=== PATIENT | female | born 1995 | race Caucasian/White ===

== ENCOUNTER 2016-07-14 14:43 | Emergency (ER) | payer MEDICAID ==
[2016-07-14 14:56] VITALS: BP 95/56
--- NOTE | 2016-07-14 15:19 | EDM.PDOC ---
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 (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 Below) Other OB/BYN History: sedation for placenta removal after childbirth Musculoskeletal History: Reports: None Neurological History: Reports: None Psychiatric History: Reports: None Endocrine/Metabolic History: Reports: None Hematologic History: Reports: None Dermatologic History: Reports: None - Infectious Disease History Infectious Disease History: Reports: Chicken Pox Other Infectious Disease History: childhood Social & Family History - Family History Family Medical History: Noncontributory Cardiac: Reports: Hypertension, [place] Neurological: Reports: CVA Endocrine/Metabolic: Reports: Diabetes, Type I Oncologic: Reports: Breast, Colon, Lung - Tobacco Use Smoking Status *Q: Current Every Day Smoker Years of Tobacco use: 7 Packs/Tins Daily: 0.5 Second Hand Smoke Exposure: No - Caffeine Use Caffeine Use: Reports: Coffee, Soda, Tea - Recreational Drug Use Recreational Drug Use: No Review of Systems - Review of Systems Review Of Systems: See Below (History of present illness) ED EXAM, GENERAL - Physical Exam Exam: See Below (History of present illness) Course - Vital Signs Last Recorded V/S: Last Vital Signs Temp 36.8 C 07/14/16 14:54 Pulse 108 H 07/14/16 14:54 Resp 18 07/14/16 14:54 BP 95/56 L 07/14/16 14:54 Pulse Ox 96 07/14/16 14:54 - Orders/Labs/Meds Meds: Medications Discontinued Medications Generic Name Dose Route Start Last Admin Trade Name Freq PRN Reason Stop Dose Admin Ibuprofen 400 mg 07/14/16 15:40 07/14/16 15:49 Motrin PO 07/14/16 15:41 400 mg ONETIME ONE Administration Departure - Departure Time of Disposition: 15:40 Disposition: Home, Self-Care 01 Condition: Good Clinical Impression: Contusion of right foot - Discharge Information Instructions: Foot Contusion, [id number] Referrals: PCP,None [Primary Care Provider] - Forms: ED Department Discharge Additional Instructions: Your x-rays are normal today and showed no evidence of fracture. You have suffered contusions, which means soft tissue injury and bruising. It is likely that the area may turn black and blue. Rest apply ice and elevate above your heart when ever possible for the next day or so. Take Motrin every 6 hours and Tylenol every 4 hours as needed for pain and followup with your Dr. for reevaluation and referral to orthopedics as needed. ED HPI Trauma - General Chief Complaint: Lower Extremity Injury/Pain Stated Complaint: FOOT Time Seen by Provider: 07/14/16 15:00 Source: Reports: Patient History Limitations: Reports: No Limitations - History of Present Illness INITIAL COMMENTS - FREE TEXT/NARRATIVE: HISTORY AND PHYSICAL: History of present illness: [20-year-old female complaining of right foot pain after being stepped on by horse. 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 Pain with palpation range of motion and weightbearing since. No other complaints no prior injury of this foot.] Review of systems: As per history of present illness and below otherwise all systems reviewed and negative. Past medical history: As per history of present illness and as reviewed below otherwise noncontributory. Surgical history: As per history of present illness and as reviewed below otherwise noncontributory. Social history: No reported history of drug or alcohol abuse. Family history: As per history of present illness and as reviewed below otherwise noncontributory. Physical exam: Right foot with soft tissue tenderness on the dorsum. No bony tenderness or deformity. No visible ecchymosis. Neurovascularly intact distally. Nontender ankle normal painless range of motion and soft nontender compartments calf and leg. HEENT: Normocephalic, atraumatic, pupils normal and symmetrical, supple neck, no meningismus, normal color Lungs: Normal and symmetrical chest wall excursion bilateral with no tachypnea or increased work of breathing, grossly normal chest exam Heart: No tachycardia in triage Abdomen: Normal-appearing, nondistended, no visible mass or asymmetry Pelvis: Normal-appearing Genitourinary: Deferred Rectal exam: Deferred Extremities: Atraumatic, normal use and range of motion, no visible evidence of gross neurovascular compromise Neuro: Awake, alert, oriented. Normal and appropriate mental status. Cranial nerves grossly unremarkable. Motor function normal. Nonfocal neurologic exam. Diagnostics: X-rays negative interpreted by me report reviewed] Therapeutics: [] Impression: [Contusion] Plan: [Signs and symptoms consistent contusion confirmed by x-ray. No clinical history suggests sprain. No further workup or treatment indicated. Patient aware to rest ice and elevate take NSAIDs and follow-up PCP and [place] as needed. Definitive disposition and diagnosis as appropriate pending reevaluation and review of above. Allergies/ADRs: Allergies No Known Allergies Allergy (Verified 07/14/16 14:53) Home Medications: Ambulatory Orders Cariprazine Hydrochloride [Vraylar] 1.5 mg PO DAILY 07/14/16 [Confirmed 07/14/16 ] Sleeping Pill 07/14/16 Departure - Departure Time of Disposition: 15:39 Disposition: Home, Self-Care 01 Condition: Good Clinical Impression: Contusion of right foot Instructions: Foot Contusion, [id number] Referrals: PCP,None [Primary Care Provider] - Forms: ED Department Discharge Additional Instructions: Your x-rays are normal today and showed no evidence of fracture. You have suffered contusions, which means soft tissue injury and bruising. It is likely that the area may turn black and blue. Rest apply ice and elevate above your heart when ever possible for the next day or so. Take Motrin every 6 hours and Tylenol every 4 hours as needed for pain and followup with your Dr. for reevaluation and referral to orthopedics as needed.
--- NOTE | 2016-07-14 15:34 | CR ---
EXAMINATION: Right foot HISTORY: Pain COMPARISON: None TECHNIQUE: 3 views FINDINGS: There is no acute osseous abnormality, dislocation, or fracture identified. Bone mineraliz ation and joint spaces appear normal. There is mild hallux valgus. IMPRESSION: No acute osseous abnormality.
[2016-07-14] MEDS ORDERED: Ibuprofen 400 MG Tab PO ONE (15:40)
== END 2016-07-14 15:51 | disposition home or self-care (01) ==
LOC: MW.ED 14:43
DX: S90.31XA Contusion of right foot, initial encounter (principal); F17.210 Nicotine dependence, cigarettes, uncomplicated; Z87.440 Personal history of urinary (tract) infections; W55.19XA Other contact with horse, initial encounter
CPT/HCPCS: 73630; 99283; A9270; 99282

== ENCOUNTER 2017-07-08 21:02 | Emergency (ER) | payer MEDICAID ==
--- NOTE | 2017-07-08 21:17 | EDM.PDOC ---
ED HPI GENERAL MEDICAL PROBLEM - General Stated Complaint: SORE THROAT/LIGHTHEADED/DIZZY Time Seen by Provider: 07/08/17 21:09 - History of Present Illness INITIAL COMMENTS - FREE TEXT/NARRATIVE: HISTORY AND PHYSICAL: History of present illness: Patient 21-year-old female presents with concern of general body aches cough shortness of breath was seen by physician recently put on antibiotics and an inhaler no reported fever chills vomiting diarrhea vaginal discharge or irregular bleeding or other complaints Review of systems: As per history of present illness and below otherwise all systems reviewed and negative. Past medical history: As per history of present illness and as reviewed below otherwise noncontributory. Surgical history: As per history of present illness and as reviewed below otherwise noncontributory. Social history: No reported history of drug or alcohol abuse. Family history: As per history of present illness and as reviewed below otherwise noncontributory. Physical exam: HEENT: Atraumatic, normocephalic, pupils reactive, negative for conjunctival pallor or scleral icterus, mucous membranes moist, throat clear, neck supple, nontender, trachea midline. Lungs: Clear to auscultation, breath sounds equal bilaterally, chest nontender. Heart: S1S2, regular, negative for clicks, rubs, or JVD. Abdomen: Soft, nondistended, nontender. Negative for masses or hepatosplenomegaly. Negative for costovertebral tenderness. Pelvis: Stable nontender. Genitourinary: Deferred. Rectal: Deferred. Extremities: Atraumatic, negative for cords or calf pain. Neurovascular unremarkable. Neuro: Awake, alert, oriented. Cranial nerves II through XII unremarkable. Cerebellum unremarkable. Motor and sensory unremarkable throughout. Exam nonfocal. Diagnostics: CBC CMP influenza screen UA hCG UDS chest x-ray EKG Therapeutics: None Impression: #1 pneumonitis #2 polymyalgia Definitive disposition and diagnosis as appropriate pending reevaluation and review of above. 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) Other OB/BYN History: sedation for placenta removal after childbirth Musculoskeletal History: Reports: None Neurological History: Reports: None Psychiatric History: Reports: None Endocrine/Metabolic History: Reports: None Hematologic History: Reports: None Dermatologic History: Reports: None - Infectious Disease History Infectious Disease History: Reports: Chicken Pox Other Infectious Disease History: childhood Social & Family History - Family History Family Medical History: Noncontributory Cardiac: Reports: Hypertension, [place] Neurological: Reports: CVA Endocrine/Metabolic: Reports: Diabetes, Type I Oncologic: Reports: Breast, Colon, Lung - Tobacco Use Smoking Status *Q: Current Every Day Smoker Years of Tobacco use: 7 Packs/Tins Daily: 0.5 Second Hand Smoke Exposure: No - Caffeine Use Caffeine Use: Reports: Coffee, Soda, Tea - Recreational Drug Use Recreational Drug Use: No ED ROS GENERAL - Review of Systems Review Of Systems: ROS reveals no pertinent complaints other than HPI. ED EXAM, GENERAL - Physical Exam Exam: See Below (The dictation) Course - Vital Signs Last Recorded V/S: Last Vital Signs Temp 36.6 C 07/08/17 23:02 Pulse 74 07/08/17 23:02 Resp 18 07/08/17 23:02 BP 100/63 07/08/17 23:02 Pulse Ox 98 07/08/17 23:02 - Orders/Labs/Meds Orders: Active Orders 24 hr Category Date Time Status EKG Documentation Completion [RC] STAT Care 07/08/17 21:19 Active DRUG SCREEN, URINE [URCHEM] Stat Lab 07/08/17 21:45 Ordered INFLUENZA A+B AG SCREEN [RM] Stat Lab 07/08/17 21:45 Ordered UA W/MICROSCOPIC [URIN] Stat Lab 07/08/17 21:45 Ordered Labs: Laboratory Tests 07/08/17 07/08/17 07/08/17 Range/Units 21:33 21:33 21:33 WBC 13.46 H (4.0-11.0) K/uL RBC 3.92 L (4.30-5.90) M/uL Hgb 12.7 (12.0-16.0) g/dL Hct 35.6 L (36.0-46.0) % MCV 90.8 (80.0-98.0) fL MCH 32.4 H (27.0-32.0) pg MCHC 35.7 (31.0-37.0) g/dL RDW Std Deviation 41.2 (28.0-62.0) fl RDW Coeff of Kimo 12 (11.0-15.0) % Plt Count 172 (150-400) K/uL MPV 11.50 (7.40-12.00) fL Neut % (Auto) 77.6 (48.0-80.0) % Lymph % (Auto) 9.9 L (16.0-40.0) % Gilliam % (Auto) 12.1 (0.0-15.0) % Eos % (Auto) 0.2 (0.0-7.0) % Baso % (Auto) 0.2 (0.0-1.5) % Neut # (Auto) 10.4 H (1.4-5.7) K/uL Lymph # (Auto) 1.3 (0.6-2.4) K/uL Gilliam # (Auto) 1.6 H (0.0-0.8) K/uL Eos # (Auto) 0.0 (0.0-0.7) K/uL Baso # (Auto) 0.0 (0.0-0.1) K/uL Nucleated RBC % 0.0 /100WBC Nucleated RBCs # 0 K/uL Sodium 138 (136-145) mmol/L Potassium 3.2 L (3.5-5.1) mmol/L Chloride 106 (98-107) mmol/L Carbon Dioxide 24.1 (21.0-32.0) mmol/L BUN 9 (7.0-18.0) mg/dL Creatinine 0.8 (0.6-1.0) mg/dL Est Cr Clr Drug Dosing 95.88 mL/min Estimated GFR (MDRD) > 60.0 ml/min Glucose 104 (74-106) mg/dL Calcium 9.0 (8.5-10.1) mg/dL Total Bilirubin 0.3 (0.2-1.0) mg/dL AST 10 L (15-37) IU/L ALT 12 L (14-63) IU/L Alkaline Phosphatase 52 (46-116) U/L Total Protein 7.1 (6.4-8.2) g/dL Albumin 3.6 (3.4-5.0) g/dL Globulin 3.5 (2.0-3.5) g/dL Albumin/Globulin Ratio 1.0 L (1.3-2.8) HCG, Qual NEGATIVE (NEG) Urine Color Urine Appearance Urine pH (5.0-8.0) Ur Specific [place] (1.001-1.035) Urine Protein (NEGATIVE) mg/dL Urine Glucose (UA) (NEGATIVE) mg/dL Urine Ketones (NEGATIVE) mg/dL Urine Occult Blood (NEGATIVE) Urine Nitrite (NEGATIVE) Urine Bilirubin (NEGATIVE) Urine Urobilinogen (<2.0) EU/dL Ur Leukocyte Esterase (NEGATIVE) Urine RBC (0-2/HPF) Urine WBC (0-5/HPF) Ur Epithelial Cells (NONE-FEW) Urine Bacteria (NEGATIVE) Urine Opiates Screen (NEGATIVE) Ur Oxycodone Screen (NEGATIVE) Urine Methadone Screen (NEGATIVE) Ur Barbiturates Screen (NEGATIVE) Ur Phencyclidine Scrn (NEGATIVE) Ur Amphetamine Screen (NEGATIVE) U Methamphetamines Scrn (NEGATIVE) U Benzodiazepines Scrn (NEGATIVE) U Cocaine Metab Screen (NEGATIVE) U Marijuana (THC) Screen (NEGATIVE) 07/08/17 07/08/17 Range/Units 21:45 21:45 WBC (4.0-11.0) K/uL RBC (4.30-5.90) M/uL Hgb (12.0-16.0) g/dL Hct (36.0-46.0) % MCV (80.0-98.0) fL MCH (27.0-32.0) pg MCHC (31.0-37.0) g/dL RDW Std Deviation (28.0-62.0) fl RDW Coeff of Kimo (11.0-15.0) % Plt Count (150-400) K/uL MPV (7.40-12.00) fL Neut % (Auto) (48.0-80.0) % Lymph % (Auto) (16.0-40.0) % Gilliam % (Auto) (0.0-15.0) % Eos % (Auto) (0.0-7.0) % Baso % (Auto) (0.0-1.5) % Neut # (Auto) (1.4-5.7) K/uL Lymph # (Auto) (0.6-2.4) K/uL Gilliam # (Auto) (0.0-0.8) K/uL Eos # (Auto) (0.0-0.7) K/uL Baso # (Auto) (0.0-0.1) K/uL Nucleated RBC % /100WBC Nucleated RBCs # K/uL Sodium (136-145) mmol/L Potassium (3.5-5.1) mmol/L Chloride (98-107) mmol/L Carbon Dioxide (21.0-32.0) mmol/L BUN (7.0-18.0) mg/dL Creatinine (0.6-1.0) mg/dL Est Cr Clr Drug Dosing mL/min Estimated GFR (MDRD) ml/min Glucose (74-106) mg/dL Calcium (8.5-10.1) mg/dL Total Bilirubin (0.2-1.0) mg/dL AST (15-37) IU/L ALT (14-63) IU/L Alkaline Phosphatase (46-116) U/L Total Protein (6.4-8.2) g/dL Albumin (3.4-5.0) g/dL Globulin (2.0-3.5) g/dL Albumin/Globulin Ratio (1.3-2.8) HCG, Qual (NEG) Urine Color YELLOW Urine Appearance CLEAR Urine pH 7.0 (5.0-8.0) Ur Specific [place] <= 1.005 (1.001-1.035) Urine Protein NEGATIVE (NEGATIVE) mg/dL Urine Glucose (UA) NEGATIVE (NEGATIVE) mg/dL Urine Ketones NEGATIVE (NEGATIVE) mg/dL Urine Occult Blood NEGATIVE (NEGATIVE) Urine Nitrite NEGATIVE (NEGATIVE) Urine Bilirubin NEGATIVE (NEGATIVE) Urine Urobilinogen 0.2 (<2.0) EU/dL Ur Leukocyte Esterase NEGATIVE (NEGATIVE) Urine RBC 0-2 (0-2/HPF) Urine WBC 0-1 (0-5/HPF) Ur Epithelial Cells OCCASIONAL (NONE-FEW) Urine Bacteria RARE (NEGATIVE) Urine Opiates Screen NEGATIVE (NEGATIVE) Ur Oxycodone Screen NEGATIVE (NEGATIVE) Urine Methadone Screen NEGATIVE (NEGATIVE) Ur Barbiturates Screen NEGATIVE (NEGATIVE) Ur Phencyclidine Scrn NEGATIVE (NEGATIVE) Ur Amphetamine Screen NEGATIVE (NEGATIVE) U Methamphetamines Scrn NEGATIVE (NEGATIVE) U Benzodiazepines Scrn NEGATIVE (NEGATIVE) U Cocaine Metab Screen NEGATIVE (NEGATIVE) U Marijuana (THC) Screen NEGATIVE (NEGATIVE) Departure - Departure Time of Disposition: 20:04 Disposition: Home, Self-Care 01 Condition: Good Clinical Impression: Bronchitis - Discharge Information Instructions: Acute Bronchitis, Adult, [id number] Referrals: PCP,None [Primary Care Provider] - Forms: ED Department Discharge - My Orders Last 24 Hours: My Active Orders 07/08/17 21:19 EKG Documentation Completion [RC] STAT 07/08/17 21:45 DRUG SCREEN, URINE [URCHEM] Stat INFLUENZA A+B AG SCREEN [RM] Stat UA W/MICROSCOPIC [URIN] Stat - Assessment/Plan Last 24 Hours: My Active Orders 07/08/17 21:19 EKG Documentation Completion [RC] STAT 07/08/17 21:45 DRUG SCREEN, URINE [URCHEM] Stat INFLUENZA A+B AG SCREEN [RM] Stat UA W/MICROSCOPIC [URIN] Stat
[2017-07-08 22:08] LABS: CHLORIDE,CL 106 mmol/L (98-107); SODIUM,NA 138 mmol/L (136-145)
[2017-07-08 23:03] VITALS: BP 100/63
--- NOTE | 2017-07-09 13:40 | CR ---
EXAM DATE: 07/08/17 PATIENT'S AGE: 21 Patient: CATRACHITA REID Facility: [place], [place] Site . Site : [id number] Study: XRay Chest [id number]/25/2018 10:11:36 PM Ordering Physician: Saba Nails Final Report: INDICATION: DIFFICULTY BREATHING FOR 1 WEEK TECHNIQUE: Chest 1 view COMPARISON: None FINDINGS: Cardiovascular and mediastinum: Heart size and vasculature are normal in caliber and appearance. Mediastinum is within normal limits. Lungs and pleural space: No focal consolidation. No sign of pleural effusion. No pneumothorax. Bones and soft tissues: No significant findings. IMPRESSION: No acute cardiopulmonary disease. Dictated by Jonathan Oliver MD @ 07/08/2017 10:18:50 PM Dictated by: Jonathan Oliver MD @ 07/08/2017 22:18:55 (Electronic Signature) Report Signed by Proxy. [facility] HOSPITALJuan Antonio
== END 2017-07-08 23:10 | disposition home or self-care (01) ==
LOC: MW.ED 21:02
DX: J18.9 Pneumonia, unspecified organism (principal); J40 Bronchitis, not specified as acute or chronic; M35.3 Polymyalgia rheumatica; F17.210 Nicotine dependence, cigarettes, uncomplicated; Z79.899 Other long term (current) drug therapy
CPT/HCPCS: 36415; 71045; 71045-26; 80053; 80305; 81001; 84703; 85025; 87804; 93005; 99285-25

== ENCOUNTER 2018-07-02 10:42 | Inpatient (IN) | payer MEDICAID ==
[2018-07-02] MEDS ORDERED: Water For Irrigation,Sterile 1,000 ML Container IRR PRN (11:20)
[2018-07-02] MEDS ORDERED: Sodium Chloride 0.9% 10 ML SDV IV PRN (11:20)
[2018-07-02] MEDS ORDERED: Misoprostol 200 MCG Tab PO PRN (11:20)
[2018-07-02] MEDS ORDERED: Tranexamic Acid 1,000 MG in Sodium Chloride 0.9% 100 ML IV PRN (11:20)
[2018-07-02] MEDS ORDERED: Sodium Chloride 0.9% 2.5 ML Syringe FLUSH PRN (11:20)
[2018-07-02] MEDS ORDERED: Methylergonovine 0.2 MG/1 ML Amp IM PRN (11:20)
[2018-07-02] MEDS ORDERED: Lidocaine 1% 50 ML MDV INJECT PRN (11:20)
[2018-07-02] MEDS ORDERED: Ampicillin 2 GM in Sodium Chloride 0.9% 100 ML IV ONE (11:20)
[2018-07-02] MEDS ORDERED: Carboprost Tromethamine 250 MCG/1 ML Amp IM PRN (11:20)
[2018-07-02] MEDS ORDERED: Nalbuphine 10 MG/1 ML Vial IVPUSH PRN (11:20)
[2018-07-02] MEDS ORDERED: Sodium Chloride 0.9% 10 ML Syringe FLUSH PRN (11:20)
[2018-07-02] MEDS ORDERED: Terbutaline 1 MG/ML SDV SUBCUT PRN (11:24)
[2018-07-02] MEDS ORDERED: Oxytocin/0.9 % Sodium Chloride 30 UNIT/500 ML BAG IV SCH (11:30)
[2018-07-02] MEDS ORDERED: Lactated Ringers 1,000 ML IV SCH (11:30)
[2018-07-02] MEDS ORDERED: Citric Acid/Sodium Citrate Solution 30 ML Cup PO ONE (13:26)
[2018-07-02] MEDS ORDERED: Ampicillin 1 GM AdvVial IV ONE (15:12)
[2018-07-02] MEDS ORDERED: Sodium Chloride 0.9% 50 ML ONE (15:13)
[2018-07-02] MEDS ORDERED: Ampicillin 1 GM in Sodium Chloride 0.9% 50 ML IV SCH (15:30)
[2018-07-02] MEDS: Butorphanol 1 MG/ML SDV IVPUSH PRN ×2 (16:17→17:19)
[2018-07-02] MEDS ORDERED: oxyCODONE 5 MG Tab PO PRN (18:44)
[2018-07-02] MEDS ORDERED: Ibuprofen 800 MG Tab PO PRN (18:44)
[2018-07-02] MEDS ORDERED: Bisacodyl 10 MG Supp RECTAL PRN (18:44)
[2018-07-02] MEDS ORDERED: Ondansetron 4 MG/2 ML SDV IVPUSH PRN (18:44)
[2018-07-02] MEDS ORDERED: Witch Hazel Medicated Pads 40/Jar TOP PRN (18:44)
[2018-07-02] MEDS ORDERED: Benzocaine/Menthol 20%-0.5% Spray 78 GM Cannister TOP PRN (18:44)
[2018-07-02] MEDS ORDERED: Lanolin 100% Cream 7 GM Tube TOP PRN (18:44)
[2018-07-02] MEDS ORDERED: Acetaminophen 500 MG Tab PO PRN ×2 (18:44)
[2018-07-02] MEDS ORDERED: Docusate Sodium 100 MG Cap PO PRN (18:44)
[2018-07-02] MEDS ORDERED: Ibuprofen 400 MG Tab PO PRN (18:44)
--- NOTE | 2018-07-02 18:50 | PCM.OPNOTE ---
- General Post-Op/Procedure Note Date of Surgery/Procedure: 07/02/18 Operative Procedure(s): /IP Findings: Viable female APGARs 8, 9 weight 8 lb 8 oz. Spontaneous delivery intact placenta with 3V cord Pre Op Diagnosis: 39/3 week IUP. GBBS +. Elective IOL Post-Op Diagnosis: Same Primary Surgeon: Radha Wong EBL in mLs: 300 Complications: none known Condition: Good Free Text/Narrative:: Dictation [id number]
--- NOTE | 2018-07-03 01:39 | OR ---
SURGEON: Radha Wong M.D. DATE OF PROCEDURE: 07/02/2018 PREOPERATIVE DIAGNOSES: 1. A 39 and 3 weeks intrauterine . 2. Group B beta strep positive. 3. Elective induction of labor. POSTOPERATIVE DIAGNOSES: 1. A 39 and 3 weeks intrauterine . 2. Group B beta strep positive. 3. Elective induction of labor. PROCEDURE: Spontaneous vaginal delivery intact perineum. ANESTHESIA: None. ESTIMATED BLOOD LOSS: 300 mL. FINDINGS: A viable male. scores 8 at 1 minute and 9 at 5 minutes. Weight of 8 pounds, 8 ounces. Spontaneous delivery, intact placenta, 3-vessel cord. DISPOSITION: Infant to nursery, mom in LDRP, stable. PROCEDURE IN DETAIL: Evelyn is a 22-year-old, G5, P2-0-0-2 at 39 and 3 weeks gestational age who was admitted on the late morning of 07/02/2017 for scheduled induction of labor. She underwent her ampicillin prophylaxis followed by amniotomy with Pitocin induction. Shortly after 4 p.m. was found to be 4 cm, within the hour progressed to 5 to 6 cm and within the next hour, was able to progress to 9 cm, feeling the urge to push, I was called for delivery. Upon my arrival, the patient was complete, 100% effaced, and +4 station. With the next contraction was able to push, deliver the 's head atraumatically, spontaneously, with delivery of the head, followed by compound presentation of left hand, with left shoulder, posterior shoulder, and remainder of body without difficulty. The infant's oropharynx and nares were bulb suctioned. The was handed off to his mother with attending nursing staff at her side. After delay of over 90 seconds, the cord was clamped x2 and cut. Cord arterial, cord venous, and cord blood sampling were obtained. Light pressure was applied while the placenta was delivered spontaneously intact. Vigorous fundal uterine massage was then applied while 30 units of Pitocin was delivered in 500 mL of IV fluids. Upon inspection of cervix, vaginal sidewalls, and perineum, these were found to be intact. Uterus remained firm. Hemostasis remained evident. Sponge count was correct. The patient remained in LDRP, infant to nursery. [place] / S[place] /[id number]
--- NOTE | 2018-07-03 09:51 | PCM.PNPP ---
- General Info Date of Service: 07/03/18 Functional Status: Reports: Pain Controlled, Tolerating Diet, Ambulating, Urinating - Review of Systems General: Denies: Fever, Weakness, Fatigue Pulmonary: Denies: Shortness of Breath Cardiovascular: Denies: Chest Pain, Palpitations, Lightheadedness Gastrointestinal: Denies: Abdominal Pain, Nausea, Vomiting Genitourinary: Denies: Flank Pain Skin: Reports: No Symptoms Neurological: Reports: No Symptoms Psychiatric: Reports: No Symptoms - General Info Date of Service: 07/03/18 - Patient Data Vital Signs - Most Recent: Last Vital Signs Temp 36.3 C 07/03/18 07:10 Pulse 89 07/03/18 07:10 Resp 17 07/03/18 07:10 BP 97/62 07/03/18 07:10 Pulse Ox 96 07/03/18 07:10 Weight - Most Recent: 78.018 kg Lab Results - Last 24 Hours: Laboratory Results - last 24 hr 07/02/18 07/02/18 07/02/18 Range/Units 11:35 11:35 18:48 WBC 11.47 H (4.0-11.0) K/uL RBC 3.74 L (4.30-5.90) M/uL Hgb 13.0 (12.0-16.0) g/dL Hct 37.7 (36.0-46.0) % MCV 100.8 H (80.0-98.0) fL MCH 34.8 H (27.0-32.0) pg MCHC 34.5 (31.0-37.0) g/dL RDW Std Deviation 47.5 (28.0-62.0) fl RDW Coeff of Kimo 13 (11.0-15.0) % Plt Count 160 (150-400) K/uL MPV 11.50 (7.40-12.00) fL Nucleated RBC % 0.0 /100WBC Nucleated RBCs # 0 K/uL Cord ABG pH 7.374 (7.18-7.38) Cord ABG Base Excess -2 (-10--2) Cord VBG pH 7.405 (7.25-7.45) Cord VBG Base Excess -2 (-10--2) Blood Type AB POSITIVE Antibody Screen NEGATIVE 07/03/18 Range/Units 05:02 WBC (4.0-11.0) K/uL RBC (4.30-5.90) M/uL Hgb 13.0 (12.0-16.0) g/dL Hct 39.7 (36.0-46.0) % MCV (80.0-98.0) fL MCH (27.0-32.0) pg MCHC (31.0-37.0) g/dL RDW Std Deviation (28.0-62.0) fl RDW Coeff of Kimo (11.0-15.0) % Plt Count (150-400) K/uL MPV (7.40-12.00) fL Nucleated RBC % /100WBC Nucleated RBCs # K/uL Cord ABG pH (7.18-7.38) Cord ABG Base Excess (-10--2) Cord VBG pH (7.25-7.45) Cord VBG Base Excess (-10--2) Blood Type Antibody Screen Med Orders - Current: Current Medications Acetaminophen (Tylenol Extra Strength) 500 mg PO Q4H PRN PRN Reason: Pain Acetaminophen (Tylenol Extra Strength) 1,000 mg PO Q4H PRN PRN Reason: Pain Benzocaine/Menthol (Dermoplast Pain Relief 20%-0.5% [place]) 78 gm TOP ASDIRECTED PRN PRN Reason: Perineal Comfort Measure Bisacodyl (Dulcolax) 10 mg RECTAL ONETIME PRN PRN Reason: Constipation Carboprost Tromethamine (Hemabate Ds) 250 mcg IM ASDIRECTED PRN PRN Reason: Post Hemorrhage Docusate Sodium (Colace) 100 mg PO BID PRN PRN Reason: Constipation Emollient Ointment (Lansinoh Hpa) 0 gm TOP ASDIRECTED PRN PRN Reason: Sore Nipples Lactated Ringer's (Ringers, Lactated) 1,000 mls @ 150 mls/hr IV ASDIRECTED PARAMJIT Last Infusion: 07/03/18 00:30 Dose: Infused Tranexamic Acid 1,000 mg/ (Sodium Chloride) 110 mls @ 660 mls/hr IV ONETIME PRN PRN Reason: Bleeding Oxytocin/Sodium Chloride (Oxytocin 30 Unit/500 Ml-Ns) 30 unit in 500 mls @ 2 mls/hr IV TITRATE PARAMJIT; Protocol Last Titration: 07/02/18 18:40 Dose: Infused Ibuprofen (Motrin) 400 mg PO Q4H PRN PRN Reason: Pain Ibuprofen (Motrin) 800 mg PO Q6H PRN PRN Reason: Pain Methylergonovine Maleate (Methergine) 0.2 mg IM ASDIRECTED PRN PRN Reason: Post Hemorrhage Ondansetron HCl (Zofran) 4 mg IVPUSH Q6H PRN PRN Reason: Nausea/Vomiting Oxycodone HCl (Oxycodone) 5 mg PO Q2H PRN PRN Reason: Pain Sodium Chloride (Saline Flush) 10 ml FLUSH ASDIRECTED PRN PRN Reason: Keep Vein Open Sodium Chloride (Saline Flush) 2.5 ml FLUSH ASDIRECTED PRN PRN Reason: Keep Vein Open Sodium Chloride (Normal Saline) 10 ml IV ASDIRECTED PRN PRN Reason: IV Use Sterile Water (Sterile Water For Irrigation) 1,000 ml IRR ASDIRECTED PRN PRN Reason: delivery Witch Moriah (Tucks) 1 pad TOP ASDIRECTED PRN PRN Reason: comfort care Discontinued Medications Ampicillin Sodium (Ampicillin) Confirm Administered Dose 1 gm IV .STK-MED ONE Stop: 07/02/18 15:13 Butorphanol Tartrate (Stadol) 1 mg IVPUSH Q1H PRN PRN Reason: Pain Last Admin: 07/02/18 17:19 Dose: 1 mg Citric Acid/Sodium Citrate (Bicitra Solution) 30 ml PO ONETIME ONE Stop: 07/02/18 13:27 Last Admin: 07/02/18 14:24 Dose: 30 ml Ampicillin Sodium 2 gm/ Sodium (Chloride) 100 mls @ 200 mls/hr IV ONETIME ONE Stop: 07/02/18 11:49 Last Admin: 07/02/18 11:44 Dose: 200 mls/hr Sodium Chloride (Normal Saline) Confirm Administered Dose 50 mls @ as directed .ROUTE .STK-MED ONE Stop: 07/02/18 15:14 Ampicillin Sodium 1 gm/ Sodium (Chloride) 50 mls @ 100 mls/hr IV Q4H PARAMJIT Last Admin: 07/02/18 15:15 Dose: 100 mls/hr Lidocaine HCl (Xylocaine 1%) 50 ml INJECT ONETIME PRN PRN Reason: Laceration repair Misoprostol (Cytotec) 200 mcg PO ONETIME PRN PRN Reason: Post Hemorrhage Nalbuphine HCl (Nubain) 10 mg IVPUSH Q1H PRN PRN Reason: Pain (severe 7-10) Terbutaline Sulfate (Brethine) 0.25 mg SUBCUT ASDIRECTED PRN PRN Reason: Tacysystole - Infant Interaction Support Person: Significant Other - Recovery Exam Fundal Tone: Firm Fundal Level: 2 Fingerbreadths Below Umbilicus Fundal Placement: Midline Lochia Amount: Scant Lochia Color: Rubra/Red Perineum Description: Intact, Minimal Bruising/Swelling Episiotomy/Laceration: None Bladder Status: Nonpalpable Urinary Elimination: Voided - Exam General: Alert, Oriented Neck: Supple Lungs: Normal Respiratory Effort Cardiovascular: Regular Rate, Regular Rhythm GI/Abdominal Exam: Normal Bowel Sounds, Soft, Non-Tender Extremities: Pedal Edema (trace). No: Fifi's Sign Skin: Warm, Dry, Intact Neurological: No New Focal Deficit Psy/Mental Status: Alert, Normal Affect, Normal Mood - Problem List & Annotations (1) Vaginal delivery SNOMED Code(s): 645289812 Code(s): O80 - ENCOUNTER FOR FULL-TERM UNCOMPLICATED DELIVERY Status: Acute Current Visit: Yes - Problem List Review Problem List Initiated/Reviewed/Updated: Yes - My Orders Last 24 Hours: My Active Orders 07/02/18 18:44 Patient Status [ADT] Routine May Shower [RC] ASDIRECTED Up ad Kaitlynn [RC] ASDIRECTED Vital Signs [RC] PER UNIT ROUTINE Acetaminophen [Tylenol Extra Strength] 1,000 mg PO Q4H PRN Acetaminophen [Tylenol Extra Strength] 500 mg PO Q4H PRN Benzocaine/Menthol [Dermoplast Pain Relief 20%-0.5% [place]] 78 gm TOP ASDIRECTED PRN Bisacodyl [Dulcolax] 10 mg RECTAL ONETIME PRN Docusate Sodium [Colace] 100 mg PO BID PRN Ibuprofen [Motrin] 400 mg PO Q4H PRN Ibuprofen [Motrin] 800 mg PO Q6H PRN Lanolin [Lansinoh HPA] See Dose Instructions TOP ASDIRECTED PRN Ondansetron [Zofran] 4 mg IVPUSH Q6H PRN Witch Moriah [Tucks] 1 pad TOP ASDIRECTED PRN oxyCODONE 5 mg PO Q2H PRN Assess Lochia [WOMSER] Per Unit Routine Assess Uterine Involution [WOMSER] Per Unit Routine Ice Therapy [OM.PC] Per Unit Routine Perineal Care [OM.PC] Per Unit Routine Peripheral IV Discontinue [OM.PC] Routine Sitz Bath [OM.PC] Per Unit Routine 07/02/18 Dinner Regular Diet [DIET] 07/03/18 09:48 Ready for Discharge [RC] PER UNIT ROUTINE - Assessment Assessment:: PPD 1 status post - Plan Plan:: Patient is feeling well overall. Labs are stable and VS are reassuring. She would like to go home later today. Discharge instructions reviewed. Follow up at [facility] in 6 weeks. INfection and bleeding warnings reviewed. Discussed patient's history of mood disorder. She is taking her wellbutrin and will stay on this medication. She will call with any concerns.
[2018-07-03 16:20] VITALS: BP 101/57
== END 2018-07-03 19:30 | disposition home or self-care (01) | DRG 807 ==
LOC: MW.OBCHECK 10:42 → MW.OB 10:48 → MW.OBCHECK 11:21 → OBSVTOIN 18:44 → MW.OB 19:29
PROVIDERS: ADMIT Obstetrics & Gynecology; ATTEND Obstetrics & Gynecology
PROC: 10E0XZZ Delivery of Products of Conception, External Approach (ICD-10-PCS; principal; 2018-07-02)
PROC: 3E033VJ Introduction of Other Hormone into Peripheral Vein, Percutaneous Approach (ICD-10-PCS; 2018-07-02)
PROC: 10907ZC Drainage of Amniotic Fluid, Therapeutic from Products of Conception, Via Natural or Artificial Opening (ICD-10-PCS; 2018-07-02)
DX: O99.824 Streptococcus B carrier state complicating childbirth (principal); Z37.0 Single live birth; Z3A.39 39 weeks gestation of pregnancy
CPT/HCPCS: 36415; 59025; 59409; 82803; 85014; 85018; 85027; 86850; 86900; 86901; A9270-GY; J0290; J0595; J2590; J7030; J7050; J7120